=== PATIENT | female | born 1955 | race Caucasian/White ===

== ENCOUNTER 2018-12-30 14:00 | Emergency (ER) | payer OTHER ==
[2018-12-30 14:10] VITALS: RESP 16
[2018-12-30] MEDS ORDERED: ONDANSETRON ODT 4 MG TAB PO STA (14:33)
[2018-12-30] MEDS ORDERED: HYDROmorphone 1 MG/ML 1 ML SYRINGE IM STA ×2 (14:33→17:10)
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
--- NOTE | 2018-12-30 16:38 | XR ---
EXAMINATION TYPE: XR knee complete bilateral DATE OF EXAM: 12/30/2018 COMPARISON: NONE HISTORY: Knee pain TECHNIQUE: 3 views each knee FINDINGS: There are bilateral knee prosthesis. I see no fracture nor dislocation. There is no sign of loosening. IMPRESSION: No complicating process seen. No fracture seen.
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
--- NOTE | 2018-12-30 16:42 | XR ---
EXAMINATION TYPE: XR calcaneus 2V RT DATE OF EXAM: 12/30/2018 COMPARISON: NONE HISTORY: Pain TECHNIQUE: 2 views FINDINGS: There is comminuted nondisplaced fracture of the body of the calcaneus. Subtalar joint is i ntact. The talus appears intact. IMPRESSION: Comminuted calcaneus nondisplaced fracture.
[2018-12-30] MEDS ORDERED: HYDROcodone/APAP 10-325MG 1 EACH TAB PO ONE (17:27)
--- NOTE | 2018-12-30 17:41 | CT ---
CT scan of the right ankle. History calcaneus fracture. Comparison none. TECHNIQUE: Multiple axial sections were obtained from the distal shaft of the tibia to the bottom of the calcane us without contrast. FINDINGS: Ankle mortise is anatomic. Distal tibia and fibula appear intact. The talus is intact. Talonavicular joint is anatomic. There is minor spurring at the talonavicular joint. There is a nondisplaced severely comminuted fracture of the body of the calcaneus. Fragments are disp laced up to 5 mm. The subtalar joint is anatomic. The cuboidal bone is intact. Cuneiform bones are in tact. IMPRESSION: Comminuted nondisplaced calcaneus fracture.
[2018-12-30] MEDS ORDERED: LOSARTAN-HCTZ 50-12.5 MG 1 EACH TAB PO STA (17:50)
[2018-12-30 19:14] VITALS: BP 146/76; PULSE 73; TEMP 97.6
[2018-12-31] MEDS ORDERED: LOSARTAN-HCTZ 50-12.5 MG 1 EACH TAB PO SCH (09:00)
--- NOTE | 2019-01-01 06:25 | CDI ---
Documentation Clarification OP Dear Renato SOL, PAC Please provide type of splint applied. Thank you, Tessie Nguyen Maintenance Apprentice If you have any questions, please contact Assistant Grocery Store Manager at [phone] Louis splint was applied as documented. This is a short leg posterior OCL splint MTDD
== END 2018-12-30 19:00 | disposition home or self-care (01) ==
LOC: EC 14:00
DX: S92.001A Unspecified fracture of right calcaneus, initial encounter for closed fracture (principal); S80.01XA Contusion of right knee, initial encounter; S80.02XA Contusion of left knee, initial encounter; S20.219A Contusion of unspecified front wall of thorax, initial encounter; M54.2 Cervicalgia; M25.511 Pain in right shoulder; I10 Essential (primary) hypertension; Z96.653 Presence of artificial knee joint, bilateral; Z79.52 Long term (current) use of systemic steroids; Z79.899 Other long term (current) drug therapy; V89.2XXA Person injured in unspecified motor-vehicle accident, traffic, initial encounter; Y92.89 Other specified places as the place of occurrence of the external cause
CPT/HCPCS: 99285; 96372 ×2; 73562; 73010; 73610; 73650; 71046; 72125; 70450; 73700; J1170